=== PATIENT | female | born 1990 | race Hispanic/Latino ===

== ENCOUNTER 2017-07-16 20:06 | Emergency (ER) | payer MEDICAID, OTHER, SELFPAY | END 2017-07-16 21:54 | disposition home or self-care (01) | LOC: ERS 20:06 | DX: H66.42 Suppurative otitis media, unspecified, left ear (principal) | CPT/HCPCS: 99282 ==

== ENCOUNTER 2018-09-05 07:43 | Emergency (ER) | payer SELFPAY ==
[2018-09-05] MEDS ORDERED: diphenhydrAMINE 50 MG/ML VIAL ONE (08:43)
[2018-09-05] MEDS ORDERED: Metoclopramide HCl 10 MG/2 ML VIAL ONE (08:43)
[2018-09-05] MEDS ORDERED: Ketorolac Tromethamine 30 MG/ML VIAL ONE (08:43)
== END 2018-09-05 10:41 | disposition home or self-care (01) ==
LOC: ERS 07:43
DX: G43.909 Migraine, unspecified, not intractable, without status migrainosus (principal)
CPT/HCPCS: 96361; 96374; 96375; J1200; J1885; J2765

== ENCOUNTER 2023-10-24 22:06 | Observation (INO) | payer SELFPAY ==
[2023-10-24 23:38] LABS: #Basophils 0.03 10x3/uL (0.0-0.2); %Basophils 0.2 % (0.0-1.0); %Eosinophils 0.5 % (0.0-10.0); %Lymphocytes 11.2 % (21.0-51.0); %Monocytes 4.7 % (0.0-10.0); %Neutrophils 82.9 % (42.0-75.0); Hematocrit 38.7 % (36.0-47.0); Hemoglobin 12.7 g/dL (12.0-16.0); Mean Corpuscular HGB CONC 32.8 g/dL (32.0-36.0); Mean Corpuscular Hemoglobin 31.3 pg (27.0-31.0); Mean Corpuscular Volume 95.3 fL (78.0-98.0); Mean Platelet Volume 10.7 fL (7.4-10.4); Platelet Count 328 10x3/uL (130-400); RBC Distribution Width 12.5 % (11.5-14.5); Red Blood Cell (RBC) Count 4.06 mill/uL (4.20-5.40)
[2023-10-24 23:57] LABS: ALT (SGPT) 80 U/L (8-55); AST (SGOT) 214 U/L (5-34); Albumin 3.7 g/dL (3.5-5.0); Alkaline Phosphatase 133 U/L (40-110); Anion Gap 10 mmol/L (10-20); BUN (Urea Nitrogen) 20 mg/dL (7.0-18.7); Bilirubin, Total 0.5 mg/dL (0.2-1.2); Calc. Creatinine Clearance 0 mL/min (70-130); Calcium 9.6 mg/dL (7.8-10.44); Carbon Dioxide 24 mmol/L (22-29); Chloride 92 mmol/L (98-107); Estimated GFR 100; Globulin 3.7 g/dL (2.4-3.5); Glucose 135 mg/dL (70-105); Lipase 22 U/L (8-78); Potassium 3.9 mmol/L (3.5-5.1); Protein, Total 7.4 g/dL (6.0-8.3); Sodium 122 mmol/L (136-145)
[2023-10-24 23:59] LABS: BHCG - Serum Negative (NEGATIVE); Pregs Control Background? CLEAR/WHITE (CLR/WHITE); Pregs Control Bar Appear? YES (CONTROL BAR)
[2023-10-25 00:07] LABS: Bacteria/HPF 2+ HPF (None Seen); Bilirubin Negative (Negative); Blood, Urine 2+ (Negative); CAUTI Indications for Culture Fever or rigors; Clarity Turbid (Clear); Glucose, Urine (Dipstick) Normal (Negative); Ketone, Urine Negative (Negative); Leukocyte 500 Leu/uL (Negative); Nitrite Negative (Negative); Protein, Urine (Dipstick) 30 mg/dL (Neg-Trace); Specific Gravity, Urine 1.032 (1.002-1.036); Urobilinogen 12 mg/dL (Less than 2); WBC/HPF Greater than 50 HPF (0-3); pH, Urine 5.5 (5.0-9.0)
[2023-10-25 00:10] LABS: Urine Culture Reflex Yes Yes
[2023-10-25] MEDS ORDERED: Ondansetron ODT 4 MG TAB ONE (00:11)
[2023-10-25] MEDS ORDERED: Ketorolac Tromethamine 30 MG (1 mL) VIAL ONE (00:11)
[2023-10-25] MEDS ORDERED: Famotidine 20 MG TAB ONE (00:11)
[2023-10-25 01:36] LABS: Anion Gap 15 mmol/L (10-20); BUN (Urea Nitrogen) 19 mg/dL (7.0-18.7); Calc. Creatinine Clearance 0 mL/min (70-130); Calcium 9.8 mg/dL (7.8-10.44); Carbon Dioxide 22 mmol/L (22-29); Chloride 106 mmol/L (98-107); Estimated GFR 98; Glucose 137 mg/dL (70-105); Potassium 4.2 mmol/L (3.5-5.1); Sodium 139 mmol/L (136-145)
[2023-10-25] MEDS ORDERED: Piperacillin/Tazobactam 4.5 GM VIAL ONE (01:44)
[2023-10-25] MEDS ORDERED: Ondansetron PF 4 MG/2 ML Vial IVP PRN ×2 (01:45→02:32)
[2023-10-25] MEDS ORDERED: Lactated Ringer's 1,000 ML IV SCH (01:45)
[2023-10-25] MEDS ORDERED: Sodium Chloride 0.9% 100 ML ONE ×2 (01:45→07:59)
[2023-10-25] MEDS ORDERED: HYDROcodone/Acetaminophen 7.5/325 mg Tablet PO PRN (02:31)
[2023-10-25] MEDS ORDERED: Ipratropium/Albuterol 3 ML NEB NEB PRN (02:32)
[2023-10-25] MEDS ORDERED: Mag-Al 1200 mg/1200 mg/30 ML UDCUP PO PRN (02:32)
[2023-10-25] MEDS ORDERED: Promethazine HCl 25 MG/ML VIAL IM PRN (02:32)
[2023-10-25] MEDS ORDERED: Acetaminophen 325 MG TAB PO PRN (02:32)
[2023-10-25] MEDS ORDERED: hydrALAZINE 20 MG/ML VIAL SLOW IVP PRN (02:32)
[2023-10-25] MEDS ORDERED: Morphine 4 MG/ML VIAL SLOW IVP PRN (02:32)
[2023-10-25] MEDS ORDERED: Calcium Carbonate 500 MG ChewTAB PO PRN (02:32)
[2023-10-25 05:37] VITALS: BP 110/66; TEMP 98.2
[2023-10-25] MEDS: Piperacillin/Tazobactam 3.375 GM in Sodium Chloride 0.9% 100 ML IVPB SCH (05:38)
[2023-10-25] MEDS: Lactated Ringer's 1,000 ML IV SCH (05:41)
[2023-10-25] MEDS ORDERED: Piperacillin/Tazobactam 3.375 GM in Sodium Chloride 0.9% 100 ML IVPB SCH (06:00)
[2023-10-25] MEDS ORDERED: Piperacillin/Tazobactam 3.375 GM VIAL ONE (07:59)
[2023-10-25] MEDS ORDERED: Famotidine 20 MG TAB PO SCH (09:00)
[2023-10-25] MEDS ORDERED: fentaNYL PF 100 MCG/2 ML SYRINGE ONE (10:15)
[2023-10-25] MEDS ORDERED: Lidocaine 1% PF 5 ML VIAL ONE (10:15)
[2023-10-25] MEDS ORDERED: Rocuronium Bromide 10 MG/ML (10ML VIAL) ONE (10:15)
[2023-10-25] MEDS ORDERED: Midazolam HCl 2 mg/2 ml Vial ONE (10:15)
[2023-10-25] MEDS ORDERED: PROPOFOL 20 ML ONE (10:15)
[2023-10-25] MEDS ORDERED: Dexamethasone 20 MG/5 ML VIAL ONE (10:57)
[2023-10-25] MEDS ORDERED: Ondansetron PF 4 MG/2 ML Vial ONE (10:57)
[2023-10-25] MEDS ORDERED: HYDROmorphone 2 MG/ML VIAL ONE (11:10)
[2023-10-25] MEDS ORDERED: fentaNYL 50 mcg/mL 1 mL Vial ONE (11:40)
[2023-10-25] MEDS ORDERED: Labetalol HCl 100 MG/20 ML VIAL ONE (11:44)
[2023-10-25] MEDS ORDERED: SUGAMMADEX SODIUM 200 MG/2 ML VIAL ONE (12:07)
[2023-10-25] MEDS ORDERED: Acetaminophen/Codeine 30-300mg Tablet PO PRN (12:32)
[2023-10-25] MEDS ORDERED: HYDROcodone/Acetaminophen 5/325 mg Tablet ONE (13:45)
[2023-10-25] MEDS ORDERED: Bupivacaine 0.25% HCL 30 ML VIAL ONE (14:32)
[2023-10-25] MEDS ORDERED: EPINEPHrine 1 MG/ML VIAL ONE (14:32)
== END 2023-10-25 15:40 | disposition home or self-care (01) ==
LOC: ERS 22:06 → ERHOLD 10-25 03:37 → SURG A 10-25 10:37
PROVIDERS: ADMIT Student in an Organized Health Care Education/Training Program; ATTEND Student in an Organized Health Care Education/Training Program
PROC: 0FT44ZZ Resection of Gallbladder, Percutaneous Endoscopic Approach (ICD-10-PCS; principal; 2023-10-25)
DX: K80.12 Calculus of gallbladder with acute and chronic cholecystitis without obstruction (principal); E87.1 Hypo-osmolality and hyponatremia; Z79.899 Other long term (current) drug therapy
CPT/HCPCS: 36415; 76705; 80048; 80053; 81001; 83690; 84703; 85025; 87077; 87086; 88304; 96365; 96372; C1889; G0378; J0171; J0665; J1100; J1170; J1885; J2250; J2405; J2543; J2704; J3010; J3490; J7120; Q0162